=== PATIENT | male | born 1955 | race Caucasian/White ===

== ENCOUNTER 2017-10-15 18:46 | Emergency (ER) | payer OTHER ==
[~2017-10-15] VITALS: Ht 182.8 cm; Wt 81.6 kg
[~2017-10-15 18:46] MED LIST: ANAPROX DS550 MG PO; HYDROCODONE BIT1 T11 PO
[2017-10-15] MEDS ORDERED: NAPROSYN500 MG PO (20:48)
== END 2017-10-15 20:43 | disposition home or self-care (01) ==
LOC: ED 18:47
DX: N45.1 Epididymitis (principal); F17.200 Nicotine dependence, unspecified, uncomplicated